=== PATIENT | female | born 1970 | race American Indian/Alaskan Native ===

== ENCOUNTER 2017-04-09 13:38 | Emergency (ER) | payer OTHER ==
[2017-04-09] MEDS ORDERED: NORCO 5/325 PO ONE (17:56)
[2017-04-09] MEDS ORDERED: FLEXERIL PO ONE (17:56)
--- NOTE | 2017-04-09 18:30 | Emergency Department Report ---
ED Back Pain/Injury HPI - General Chief Complaint: Extremity Injury, Lower Stated Complaint: BACK, LEG PAIN AND NUMBNESS Time Seen by Provider: 04/09/17 17:41 Source: patient Mode of arrival: Ambulatory Limitations: No Limitations - History of Present Illness Initial Comments: PT states she was dx with sciatica in 2006. PT states she is having the same symptoms for a week and a half. No improvement with Motrin/ Tylenol. PT states the last time she had sciatica, it resolved on it's own, however, this time it is not improving. lbp radiates down R leg, 01/19 pain. MD Complaint: back pain -: Gradual, week(s) (1.5 weeks ) Similar Symptoms Previously: Yes Severity: severe Severity scale (0 -10): 10 Quality: burning Consistency: constant Improves With: none Context: unknown Associated Symptoms: denies other symptoms. denies: difficulty walking, difficulty urinating, incontinence, abdominal pain, nausea/vomiting - Related Data Previous Rx's Medication Instructions Recorded Last Taken Type Acetaminophen/Codeine [Tylenol #3] 1 tab PO Q6H PRN #12 tab 04/09/17 Unknown Rx Lisinopril [Prinivil] 10 mg PO DAILY #14 tablet 04/09/17 Unknown Rx methOCARBAMOL [Robaxin TAB] 500 mg PO Q6H PRN #15 tablet 04/09/17 Unknown Rx methylPREDNISolone [Medrol] 4 mg PO DAILY #1 tab.ds.pk 04/09/17 Unknown Rx Allergies Allergy/AdvReac Type Severity Reaction Status Date / Time No Known Allergies Allergy Unverified 04/09/17 13:48 ED Review of Systems ROS: Stated complaint: BACK, LEG PAIN AND NUMBNESS Other details as noted in HPI Comment: All other systems reviewed and negative Constitutional: denies: fever, malaise Cardiovascular: denies: chest pain, edema Gastrointestinal: denies: abdominal pain, nausea, vomiting Genitourinary: denies: dysuria Musculoskeletal: back pain ED Past Medical Hx - Past Medical History Previous Medical History?: No Additional medical history: Sciatica - Surgical History Past Surgical History?: No - Social History Smoking Status: Never Smoker Substance Use Type: Alcohol - Medications Home Medications: Home Medications Medication Instructions Recorded Confirmed Last Taken Type Acetaminophen/Codeine [Tylenol #3] 1 tab PO Q6H PRN #12 tab 04/09/17 Unknown Rx Lisinopril [Prinivil] 10 mg PO DAILY #14 tablet 04/09/17 Unknown Rx methOCARBAMOL [Robaxin TAB] 500 mg PO Q6H PRN #15 tablet 04/09/17 Unknown Rx methylPREDNISolone [Medrol] 4 mg PO DAILY #1 tab.ds.pk 04/09/17 Unknown Rx ED Physical Exam - General Limitations: No Limitations General appearance: alert, in no apparent distress - Head Head exam: Present: atraumatic, normocephalic, normal inspection - Eye Eye exam: Present: normal appearance. Absent: conjunctival injection - ENT ENT exam: Present: normal exam, mucous membranes moist, normal external ear exam - Neck Neck exam: Present: normal inspection, full ROM - Respiratory Respiratory exam: Present: normal lung sounds bilaterally. Absent: respiratory distress, wheezes, rales, rhonchi, stridor, chest wall tenderness - Cardiovascular Cardiovascular Exam: Present: regular rate, normal rhythm, normal heart sounds - GI/Abdominal GI/Abdominal exam: Present: soft. Absent: tenderness, guarding, rebound - Extremities Exam Extremities exam: Present: normal inspection, full ROM - Back Exam Back exam: Present: normal inspection, full ROM, tenderness, muscle spasm, paraspinal tenderness (R lumbar ). Absent: CVA tenderness (R), CVA tenderness ( L), vertebral tenderness - Neurological Exam Neurological exam: Present: alert, oriented X3, normal gait - Psychiatric Psychiatric exam: Present: normal affect, normal mood - Skin Skin exam: Present: warm, dry, intact, normal color ED Course Vital Signs 04/09/17 04/09/17 04/09/17 13:48 17:59 19:13 Temperature 98.5 F 98.3 F Pulse Rate 81 84 77 Respiratory 16 18 17 Rate Blood Pressure 145/86 Blood Pressure 155/83 169/99 [Left] O2 Sat by Pulse 98 84 99 Oximetry - Reevaluation(s) Reevaluation #1: 04/09/17 18:33 PT aware of dx and plan of care Reevaluation #2: 04/09/17 19:22 PT states she is feeling better. PT aware that her bp has increased during her ED visit. At this time, pt reports a hx of htn and states previously she has been on Lisinopril 10 mgs. PT aware that she will need her BP to be rechecked by PCP. PT verbalizes understanding. - Pulse Oximetry Interpretation Digit-Finger Initial Pulse Oximetry Readin Actions Taken: none ED Medical Decision Making - Differential Diagnosis low back pain, sciatica Critical Care Time: No Critical care attestation.: If time is entered above; I have spent that time in minutes in the direct care of this critically ill patient, excluding procedure time. ED Disposition Clinical Impression: Essential hypertension Sciatica Qualifiers: Laterality: right Qualified Code(s): M54.31 - Sciatica, right side Disposition: DC- TO HOME OR SELFCARE Is pt being admited?: No Does the pt Need Aspirin: No Condition: Stable Instructions: Sciatica (ED), Lumbar Radiculopathy (ED), Hypertension (ED), Piriformis Syndrome (ED) Additional Instructions: No driving or alcohol after taking Robaxin or Tylenol #3 Follow up with PCP in 3-5 days for BP recheck Return to ED if symptoms worsen or you have concerns Prescriptions: Acetaminophen/Codeine [Tylenol #3] 1 tab PO Q6H PRN #12 tab PRN Reason: Pain , Severe (7-10) Lisinopril [Prinivil] 10 mg PO DAILY #14 tablet methOCARBAMOL [Robaxin TAB] 500 mg PO Q6H PRN #15 tablet PRN Reason: Muscle Spasm methylPREDNISolone [Medrol] 4 mg PO DAILY #1 tab.ds.pk Referrals: PRIMARY CARE, [Primary Care Provider] - 3-5 Days JEAN GOOD MD [Staff Physician] - 3-5 Days MADELYN PENA MD [Staff Physician] - 3-5 Days ALLEGRA GARIBAY MD [Staff Physician] - 3-5 Days Forms: Accompanied Note, Work/School Release Form(ED) Time of Disposition: 19:23
[2017-04-09 19:14] VITALS: BP 169/99
[2017-04-09] MEDS ORDERED: ZESTRIL PO ONE (19:24)
== END 2017-04-09 20:01 | disposition home or self-care (01) ==
LOC: ED 13:38
DX: M54.31 Sciatica, right side (principal); I10 Essential (primary) hypertension
CPT/HCPCS: 96372; 99282; J2930

== ENCOUNTER 2017-04-26 15:40 | Emergency (ER) | payer SELFPAY ==
--- NOTE | 2017-04-27 01:09 | Emergency Department Report ---
HPI - General Chief Complaint: Upper Respiratory Infection Time Seen by Provider: 04/27/17 00:51 - HPI HPI: Patient is a 46-year-old female presents to ED with her complaining intermittent, nonproductive, cough 2 weeks. Patient states that she hasn't taken [id number] medications with no relief. Patient states cough is nonproductive. Patient states cough is intermittent throughout the day that is causing her discomfort in her chest. Patient states she had some episodes of nausea with cough. She states she had an episode of diarrhea that is now resolved. Patient denies fevers chills/chest pain/shortness of breath/diarrhea/ revision/dizziness/area pain/runny nose ED Past Medical Hx - Past Medical History Previous Medical History?: No Additional medical history: Sciatica - Surgical History Past Surgical History?: No - Social History Smoking Status: Never Smoker Substance Use Type: Alcohol - Medications Home Medications: Home Medications Medication Instructions Recorded Confirmed Last Taken Type Acetaminophen/Codeine [Tylenol #3] 1 tab PO Q6H PRN #12 tab 04/09/17 Unknown Rx Lisinopril [Prinivil] 10 mg PO DAILY #14 tablet 04/09/17 Unknown Rx methOCARBAMOL [Robaxin TAB] 500 mg PO Q6H PRN #15 tablet 04/09/17 Unknown Rx methylPREDNISolone [Medrol] 4 mg PO DAILY #1 tab.ds.pk 04/09/17 Unknown Rx Acetamin/Codeine 120-12Mg/5 ml 5 ml PO TID PRN #60 ml 04/27/17 Unknown Rx [Tylenol/Codeine] Benzonatate [Tessalon Perles] 100 mg PO Q8HR #24 capsule 04/27/17 Unknown Rx Ondansetron [Zofran TAB] 4 mg PO Q8HR PRN #20 tablet 04/27/17 Unknown Rx guaiFENesin ER [Mucinex ER] 600 mg PO Q12H #20 tablet.er 04/27/17 Unknown Rx ED Review of Systems ROS: Stated complaint: FEVER,CHILLS,CHEST PAIN,COUGH,TIGHTNESS Other details as noted in HPI Constitutional: denies: chills, fever Eyes: denies: eye pain, eye discharge, vision change ENT: denies: ear pain, throat pain, hearing loss Respiratory: cough. denies: shortness of breath, wheezing Cardiovascular: denies: chest pain, palpitations Endocrine: no symptoms reported Gastrointestinal: nausea. denies: abdominal pain, vomiting, diarrhea, constipation Genitourinary: denies: urgency, dysuria, frequency, discharge Musculoskeletal: denies: back pain, joint swelling, arthralgia Skin: denies: rash, lesions, pruritus Neurological: denies: headache, weakness, numbness, paresthesias, confusion Psychiatric: denies: anxiety, depression Hematological/Lymphatic: denies: easy bleeding, easy bruising Physical Exam - Physical Exam Vital Signs: Vital Signs 04/26/17 16:50 Temperature 98.5 F Pulse Rate 74 Respiratory 20 Rate Blood Pressure 133/91 O2 Sat by Pulse 98 Oximetry Physical Exam: GENERAL: Alert and oriented x3, no apparent distress, Normal Gait, atraumatic. HEAD: Head is normocephalic and a-traumatic. EYES: Extra ocular muscles are intact. Pupils are equal, round, and reactive to light and accommodation. EARS: symetrical, atraumatic, non tender, ear canal clear and moderate cerumen, tympanic membrance non inflamed. gross auditory nml bilaterally. NOSE: Nose symetrical, Nontender,Nares appeared normal. MOUTH:Mouth is well hydrated and without lesions. Tonsils nonerythematous or swollen, Uvula midline, Tongue not elevated. Mucous membranes are moist. Posterior pharynx clear, no exudate or lesions. Patent airways. NECK: Supple. Non edematous, No lymphadenopathy or thyromegaly. No C-spine tenderness LUNGS: Symetrical with respiration, No wheezing, no rales or crackles, CTAB. HEART: S1, S2 present, regular rate and rhythm without murmur, no rubs, no gallops. Non tender to palpation SKIN: Warm and dry, No lesions, No ulceration or induration present. ED Course Vital Signs 04/26/17 16:50 Temperature 98.5 F Pulse Rate 74 Respiratory 20 Rate Blood Pressure 133/91 O2 Sat by Pulse 98 Oximetry ED Medical Decision Making - Radiology Data Radiology results: report reviewed, image reviewed FINAL REPORT EXAM: XR CHEST ROUTINE 2V HISTORY: cough/fever TECHNIQUE: PA and lateral views of the chest were submitted. There are no previous studies available for comparison. FINDINGS: Heart size and mediastinum appear normal. There are no localized infiltrates or effusions. The lungs are not congested. The skeletal structures appear well maintained. IMPRESSION: No active chest disease. Transcribed By: RB Dictated By: MADELYN PRESTON MD Electronically Authenticated By: MADELYN PRESTON MD Signed Date/Time: 04/26/17 928 - Medical Decision Making 46-year-old male presents with upper respiratory infection with bronchitis. Fever resolved, no fever during the ED stay. Discussed with Pt symptomatic relief with [id number] medications. Chest x-ray ordered, chest x-ray shows no abnormalities Discussed continue Tylenol and Motrin as needed for fever and pain. Discussed increase fluids and diet intake. Discussed rest much needed. Discussed daily vitamin C for immune booster. Discussed follow-up with chief mechanical engineer in 3-5 days. Patient verbally states she understands and will comply the following instructions and follow-up Vital signs stable. Patient is in no acute distress Critical care attestation.: If time is entered above; I have spent that time in minutes in the direct care of this critically ill patient, excluding procedure time. ED Disposition Clinical Impression: Bronchitis URI (upper respiratory infection) Qualifiers: URI type: unspecified URI Qualified Code(s): J06.9 - Acute upper respiratory infection, unspecified Disposition: DC-01 TO HOME OR SELFCARE Is pt being admited?: No Does the pt Need Aspirin: No Condition: Stable Instructions: Upper Respiratory Infection (ED), Chronic Bronchitis (ED), Cold Symptoms (ED) Additional Instructions: Make sure to follow up with the primary care physician as discussed. Take all your medications as you've been prescribed. If you have any worsening symptoms or develop new symptoms please return to ED immediately. Prescriptions: Acetamin/Codeine 120-12Mg/5 ml [Tylenol/Codeine] 5 ml PO TID PRN #60 ml PRN Reason: Pain Benzonatate [Tessalon Perles] 100 mg PO Q8HR #24 capsule guaiFENesin ER [Mucinex ER] 600 mg PO Q12H #20 tablet.er Ondansetron [Zofran TAB] 4 mg PO Q8HR PRN #20 tablet PRN Reason: Nausea Referrals: SHEY MERINO MD [Primary Care Provider] - 3-5 Days [facility] [Outside] - 3-5 Days [facility] [Outside] - 3-5 Days Forms: Accompanied Note, Work/School Release Form(ED) Time of Disposition: 02:15
[2017-04-27] MEDS ORDERED: TYLENOL/CODEINE PO ONE (01:28)
[2017-04-27] MEDS ORDERED: DELTASONE PO ONE (01:28)
[2017-04-27] MEDS ORDERED: MUCINEX ER PO ONE (01:28)
--- NOTE | 2017-04-27 02:08 | XRay Report ---
FINAL REPORT EXAM: XR CHEST ROUTINE 2V HISTORY: cough/fever TECHNIQUE: PA and lateral views of the chest were submitted. There are no previous studies available for comparison. FINDINGS: Heart size and mediastinum appear normal. There are no localized infiltrates or effusions. The lungs are not congested. The skeletal structures appear well maintained. IMPRESSION: No active chest disease.
[2017-04-27 03:40] VITALS: BP 139/91
== END 2017-04-27 02:25 | disposition home or self-care (01) ==
LOC: ED 15:40
DX: J40 Bronchitis, not specified as acute or chronic (principal); R11.0 Nausea
CPT/HCPCS: 71046; 93005; 93010; 99283; J7512